=== PATIENT | male | born 1940 | race Caucasian/White ===

== ENCOUNTER 2024-04-27 06:53 | Day surgery (SDC) | payer OTHER ==
[2024-04-26 12:00] LABS: BASOPHILS # (AUTO) 0.1 X10'3 (0-0.2); BASOPHILS % (AUTO) 1.1 % (0-1); EOSINOPHILS # (AUTO) 0.2 X10'3 (0-0.9); EOSINOPHILS % (AUTO) 2.8 % (0-6); HEMATOCRIT 45.7 % (42.0-52.0); HEMOGLOBIN 15.2 g/dl (14.0-17.9); LYMPHOCYTES # (AUTO) 1.2 X10'3 (1.1-4.8); MEAN CORPUSCULAR HEMOGLOBIN 31.6 PG (27.0-31.0); MEAN CORPUSCULAR HGB CONC 33.4 g/dL (33.0-36.5); MEAN CORPUSCULAR VOLUME 94.5 FL (78-98); MEAN PLATELET VOLUME 8.3 FL (7.4-10.4); MONOCYTES # (AUTO) 0.5 X10'3 (0-0.9); MONOCYTES % (AUTO) 8.8 % (2-12); NEUTROPHILS # (AUTO) 4.1 X10'3 (1.8-7.7); NEUTROPHILS % (AUTO) 67.3 % (42-75); PLATELET COUNT 206 X10'3 (140-440); RED BLOOD COUNT 4.83 X10'6 (4.70-6.10); RED CELL DISTRIBUTION WIDTH 13.6 % (11.5-14.5); WHITE BLOOD COUNT 6.1 X10'3 (4.5-11.0)
[2024-04-26 12:14] LABS: APTT 29 SECONDS (22-32); INR 1.1 INR; PROTHROMBIN TIME 11.6 SECONDS (9.0-12.0)
[2024-04-26 12:30] LABS: ALBUMIN 3.4 G/DL (3.4-5.0); ANION GAP 6 (8-16); BLOOD UREA NITROGEN 13 MG/DL (7-18); BUN/CREATININE RATIO 15.1 (10.0-20.0); CALCIUM 8.8 MG/DL (8.5-10.1); CHLORIDE 107 MMOL/L (99-107); CREATININE 0.86 MG/DL (0.60-1.10); GLUCOSE 90 MG/DL (70-104); POTASSIUM 4.3 MMOL/L (3.5-5.1); SODIUM 142 MMOL/L (135-145); TOTAL CARBON DIOXIDE 29.3 MMOL/L (24-32); eGFR 85 ML/MIN
[~2024-04-27] VITALS: Ht 177.8 cm; Wt 88.4 kg
[2024-04-27] VITALS (15 sets, daily range): BP systolic 100–136; BP diastolic 47–94; PULSE 64–81; RESP 12–22; TEMP 98.5; O2SAT 92–99
[~2024-04-27 06:53] MED LIST: ASPI-611 PO; NAPR-56 PO; PANT40TA54 PO; UBID50TA3 PO
[2024-04-27] MEDS ORDERED: ceFAZolin 1,000 MG in NS 50ML IVPB IV ONE (07:15)
[2024-04-27] MEDS ORDERED: iohexol 350 MG/ML 50ML vial IV ONE (08:27)
[2024-04-27] MEDS ORDERED: verapamil 2.5 mg/ml inj IV ONE (08:27)
[2024-04-27] MEDS ORDERED: heparin 1,000unit/ml 10ml vial 10 ML ONE (08:27)
[2024-04-27] MEDS ORDERED: LIDOcaine 1% (10mg/ml) 2ml vial ONE (08:27)
[2024-04-27] MEDS ORDERED: fentaNYL/PF 50MCG/1 ML 2ML syringe ONE (08:27)
[2024-04-27] MEDS ORDERED: midazolam 1 mg/ML 2ml injection ONE (08:27)
[2024-04-27] MEDS ORDERED: iohexol 350MG/ML 100ml bottle IV ONE ×2 (08:28→10:13)
[2024-04-27] MEDS ORDERED: nitroGLYCERIN 500mcg/5mL D5W 5 ML IV ONE (08:29)
[2024-04-27] MEDS ORDERED: CYAN-34 PO (08:41)
[2024-04-27] MEDS ORDERED: ASPI-974 PO (08:41)
[2024-04-27] MEDS ORDERED: CHOL200052 PO (08:41)
[2024-04-27] MEDS ORDERED: LOPE2CAP PO (08:41)
[2024-04-27] MEDS ORDERED: FLO0.4C PO (08:41)
[2024-04-27] MEDS: diphenhydrAMINE 25mg capsule PO PRN (08:49)
[2024-04-27] MEDS: LORazepam 0.5 MG tablet PO PRN (08:49)
[2024-04-27] MEDS: normal saline 1,000 ML IV SCH (08:49)
[2024-04-27] MEDS ORDERED: LIDOcaine 1% 30ml preserv. free vial ONE (10:00)
[2024-04-27 11:25] LABS: ISTAT HGB ART 13.9 g/dl (14.0-17.9); ISTAT Hct ART 41 %PCV (42-52); ISTAT O2 SATURATION ARTERIAL 94 % (95-98); ISTAT SOURCE ART
== END 2024-04-27 18:00 | disposition home or self-care (01) ==
LOC: CATH LAB 06:53 → SSTAY O 18:00
PROVIDERS: ATTEND Internal Medicine Cardiovascular Disease
DX: I35.0 Nonrheumatic aortic (valve) stenosis (principal); I25.10 Atherosclerotic heart disease of native coronary artery without angina pectoris; I11.0 Hypertensive heart disease with heart failure; I50.32 Chronic diastolic (congestive) heart failure; I48.0 Paroxysmal atrial fibrillation; E78.5 Hyperlipidemia, unspecified; E66.3 Overweight; Z79.82 Long term (current) use of aspirin; Z79.899 Other long term (current) drug therapy; Z90.49 Acquired absence of other specified parts of digestive tract; Z95.818 Presence of other cardiac implants and grafts; Z98.890 Other specified postprocedural states; Z68.28 Body mass index [BMI] 28.0-28.9, adult; Z88.2 Allergy status to sulfonamides; Z80.9 Family history of malignant neoplasm, unspecified
CPT/HCPCS: 36415; 80048; 82803; 85014; 85025; 85610; 85730; 93005; 93460; 99152; 99153; A6258; J1644; J2250; J3010; J3490; J7030; Q0163; Q9967; 76937; A6402; A6449; C1725; C1751; C1760; C1769; C1894

== ENCOUNTER 2025-02-09 09:24 | Outpatient (CLI) | payer OTHER ==
[~2025-02-09 09:24] MED LIST changes: -ASPI-611 PO; +ASPI-974 PO; +CHOL200052 PO; +CYAN-34 PO; +IODIXANOL 320 MG/ML INFUS..BTL 100ML IV ONE; +LOPE2CAP PO; -NAPR-56 PO; -PANT40TA54 PO; +TAMS-55 PO; -UBID50TA3 PO
[2025-02-09 09:50] LABS: MEAN PLATELET VOLUME 8.5 FL (7.4-10.4); RED CELL DISTRIBUTION WIDTH 14.0 % (11.5-14.5)
[2025-02-09 10:02] LABS: APTT 32 SECONDS (22-32); INR 1.2 INR
[2025-02-09 10:10] LABS: CREATININE 1.01 MG/DL (0.60-1.10); PRO BRAIN NATRIURETIC PEPTIDE 870 PG/ML (0-450); TOTAL CARBON DIOXIDE 29.4 MMOL/L (24-32); eGFR 71 ML/MIN
--- NOTE | 2025-02-09 11:18 | RADIOLOGY REPORT ---
DI CHEST,TWO VIEWS CLINICAL HISTORY: SOB TAVR COMPARISON: None TECHNIQUE: Frontal and lateral view of the chest was obtained FINDINGS: Lines and Tubes: None Lungs: No focal consolidation. Pleura: No effusion. No pneumothorax. Cardiomediastinal contours: Unremarkable Bones: Median sternotomy. IMPRESSION: No acute cardiopulmonary disease.
--- NOTE | 2025-02-09 12:08 | VASCULAR REPORT ---
Carotid Duplex Clinical History: Hyperlipidemia Comparison: None Technique: Duplex Doppler evaluation of the extracranial carotid and vertebral arteries including color Doppler and spectral/pulsed waveform analysis was performed. Findings: RIGHT SIDE: The peak systolic velocities are 82 cm/s in the CCA, 62 cm/s in the ICA. The ICA/CCA ratio is 1.1. The external carotid artery is patent with peak systolic velocity of 67 cm/s proximally. The subclavian artery is patent with peak systolic velocity of 95 cm/s. There is appropriate antegrade flow in the right vertebral artery. LEFT SIDE: The peak systolic velocities are 81 cm/s in the CCA, 68 cm/s in the ICA. The ICA/CCA ratio is 0.9. The external carotid artery is patent with peak systolic velocity of 83 cm/s proximally. The subclavian artery is patent with peak systolic velocity of 74 cm/s. There is appropriate antegrade flow in the left vertebral artery. IMPRESSION: No hemodynamically significant stenosis noted in the right carotid system. No hemodynamically significant stenosis noted in the left carotid system. Reference: Radiology 2003; 229:340-346 Normal ICA PSV is <125 cm/sec and no plaque or intimal thickening is visible sonographically addition al criteria include ICA/CCA PSV ratio <2.0 and ICA EDV <40 cm/sec <50% ICA stenosis ICA PSV is <125 cm/sec and plaque or intimal thickening is visible sonographically additional criteria include ICA/CCA PSV ratio <2.0 and ICA EDV <40 cm/sec 50-69% ICA stenosis ICA PSV is 125-230 cm/sec and plaque is visible sonographically additional criter ia include ICA/CCA PSV ratio of 2.0-4.0 and ICA EDV of 40-100 cm/sec 70% ICA stenosis but less than near occlusion ICA PSV is >230 cm/sec and visible plaque and luminal narrowing are seen at delarosa-scale and color Doppler ultrasound (the higher the Doppler parameters lie above the threshold of 230 cm/sec, the greater the likelihood of severe disease) additional criteria include ICA/CCA PSV ratio >4 and ICA EDV >100 cm/sec
--- NOTE | 2025-02-10 13:52 | RADIOLOGY REPORT ---
Procedure: CT CTA TAVR Reason for study/Clinical History: Chest pain, evaluate for dissection. Comparison Study: None Exam Date: 02/09/2025 10:50 AM TECHNIQUE: Multiplanar reformatted images were generated from volumetric data acquired on a multidetector [facility]. Cardiac gating was utilized. Arterial phase images were obtained through the chest, abdomen and pelvis following intravenous administration of contrast material. 100 mL visipaque [address] dose reduction techniques were utilized. 3-D reconstructions were performed on an independent work station. Radiation Dose Information: CT Dose: CTDI volume is 65 mGy. Dose-length product is 2383 mGy*cm FINDINGS: Vascular: Aortic measurements: Aortic annulus: 35.2 x 28.7 mm Sinus of valsalva: right cusp 37.7 mm, left cusp 36.6 mm, non-coronary cusp 37.6 mm Right coronary distance: 17.4 Left coronary distance: 15.8 ST junction 29.5 mm Ascending aorta 32.1 mm Aortic arch 27 mm Descending aorta 26 mm Aortic hiatus 26 mm Upper abdominal aorta 23 mm Minimal abdominal aorta 14.3 mm Right common iliac 10.8 mm, tortuosity index 2.48 Left common iliac 10.6 mm, tortuosity index 1.21 There is normal caliber of aorta. No aortic dissection. Aortic arch anatomy is conventional. There is conventional coronary artery anatomy. Scattered calcified atherosclerotic plaque. No central pulmonary embolism. There is normal dimension of the main pulmonary artery. Heart is normal. There are no intracardiac filling defects. No pericardial effusion. Mediastinum: Subcentimeter mediastinal nodes.. Lungs: Atelectasis and scarring in the lung bases. Pleura: No effusion or pneumothorax. Chest wall: No acute abnormality. Abdomen and Pelvis: Liver: Normal in appearance. Gallbladder: Normal in appearance. Spleen: Normal in appearance. Pancreas: Normal in appearance. Adrenals: Normal in appearance. Kidneys: Normal in appearance. Bowel: Normal in appearance. Peritoneum: No free air or free fluid. Lymph nodes: No lymphadenopathy by CT size criteria. Pelvic structures: Prostatomegaly. 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 IMPRESSION: 1. TAVR planning with vascular measurements as described above. 2. Prostatomegaly. HS:Y
== END 2025-02-09 23:59 | disposition home or self-care (01) ==
LOC: RAD 09:24
PROVIDERS: ATTEND Internal Medicine Cardiovascular Disease
DX: E78.5 Hyperlipidemia, unspecified (principal); I35.0 Nonrheumatic aortic (valve) stenosis; I65.29 Occlusion and stenosis of unspecified carotid artery; R06.02 Shortness of breath; J98.11 Atelectasis
CPT/HCPCS: 36415; 71046; 71275; 74174; 75572; 80053; 83880; 85025; 85610; 85730; 93880; Q9967

== ENCOUNTER 2025-03-09 06:06 | Inpatient (IN) | payer OTHER, BC ==
[2025-03-06 10:37] LABS: MEAN PLATELET VOLUME 8.5 FL (7.4-10.4); PRE OP HEMATOCRIT 45.5 % (42.0-52.0); PRE OP HEMOGLOBIN 15.6 g/dL (14.0-17.9); PRE OP PLATELET COUNT 198 X10'3 (140-440); PRE OP WHITE BLOOD COUNT 7.3 10'3 (4.8-10.8); RED CELL DISTRIBUTION WIDTH 13.5 % (11.5-14.5)
--- NOTE | 2025-03-06 10:44 | ELECTROCARDIOGRAPH REPORT ---
[facility] Test Date: 2025-03-06 Test Time: 10:34:25 Pat Name: MALATHI KHAN Department: PRE/OP CARDIOLOGY Room: Gender: M Steel Finisher: RYNE : 1940 Requested By: RACHEL FAGAN Order Number: [id number] Reading MD: Dr. KATI Walters Measurements Intervals [place] Rate: 70 P: -87 VT: 132 QRS: 82 QRSD: 84 T: 57 QT: 426 QTc: 460 Interpretive Statements Sinus or ectopic atrial rhythm Borderline right axis deviation Electronically Signed On 03-06-2025 18:19:[address] KATI Walters Please click the below link to view image of tracing.
[2025-03-06 10:51] LABS: PRE OP INR 1.1 INR; PRE OP PARTIAL THROMB. TIME 32.0 SECONDS (22-32); PRE OP PROTIME 11.5 SECONDS (9.0-12.0)
[2025-03-06 10:55] LABS: CREATININE 0.83 MG/DL (0.60-1.10); PRE OP ALT 24 U/L (30-65); PRE OP ANION GAP 4 (8-16); PRE OP AST 20 U/L (10-37); PRE OP BILIRUB, TOTAL 0.6 MG/DL (0.0-1.0); PRE OP GLUCOSE 93 MG/DL (70-104); PRE OP POTASSIUM 4.2 MMOL/L (3.4-5.1); PRE OP SODIUM 140 MMOL/L (135-145); TOTAL CARBON DIOXIDE 32.2 MMOL/L (24-32); eGFR 89 ML/MIN
--- NOTE | 2025-03-06 11:26 | RADIOLOGY REPORT ---
DI CHEST,TWO VIEWS CLINICAL HISTORY: PREOP COMPARISON: DI CHEST,TWO VIEWS on DOS: 02/09/25 TECHNIQUE: Frontal and lateral view of the chest was obtained FINDINGS: Lines and Tubes: None Lungs: No focal consolidation. Pleura: No effusion. No pneumothorax. Cardiomediastinal contours: Unremarkable Bones: Median sternotomy. IMPRESSION: No acute cardiopulmonary disease.
[2025-03-06 11:53] LABS: LEUKOCYTE ESTERASE ,URINE NEGATIVE (Neg); NITRITES, URINE NEGATIVE (Neg); OCCULT BLOOD,URINE TRACE-INTACT (Neg)
[2025-03-06 11:56] LABS: UA COLLECTION TYPE NON-SPECIFIED
[2025-03-06 11:59] LABS: SQUAMOUS EPITHELIAL CELL,UR NONE SEEN /LPF (FEW)
[2025-03-06 12:00] LABS: MUCUS STRANDS NONE SEEN /LPF (Neg)
[2025-03-06 17:25] LABS: PRO BRAIN NATRIURETIC PEPTIDE 1184 PG/ML (0-450)
[~2025-03-09] VITALS: Ht 175.3 cm; Wt 88.0 kg
[2025-03-09] VITALS (29 sets, daily range): BP systolic 102–149; BP diastolic 52–114; PULSE 60–97; RESP 12–19; TEMP 97.3–98.5; O2SAT 90–100
[~2025-03-09 06:06] MED LIST changes: +APIX5TAB3 PO; -CYAN-34 PO; -IODIXANOL 320 MG/ML INFUS..BTL 100ML IV ONE; +SOTA80TA46 PO; +nitroPRUSSIDE (NIPRIDE) (200MCG/ML) 100ML Drip IV SCH; +ondansetron/PF 4mg/2ml inj IV PRN; +phenylephrine inj 50 MG in normal saline 250ml IV solN IV SCH
[2025-03-09] MEDS ORDERED: protamine sulfate 10mg/ml inj. ONE ×2 (06:26→08:45)
[2025-03-09] MEDS: DOCUMENT DATE & TIME OF BETA-BLOCKER PO ONE (06:58)
[2025-03-09] MEDS: ceFAZolin 2gm/dext,iso 50mL 50 ML IV ONE (06:59)
[2025-03-09] MEDS: ringers solution, lacted 1,000 ML IV SCH ×2 (07:02→10:15)
[2025-03-09] MEDS: VANCOMYCIN/H2O 1.5g/300mL PB 300 ML IV ONE (07:15)
[2025-03-09] MEDS ORDERED: LIDOcaine 1% 30ml preserv. free vial ONE (08:05)
[2025-03-09] MEDS ORDERED: heparin 1,000 UNITS/NS 500ml 1,500 ML ONE (08:05)
[2025-03-09] MEDS ORDERED: midazolam 1 mg/ML 2ml injection ONE (08:17)
[2025-03-09] MEDS ORDERED: fentaNYL/PF 50MCG/1 ML 2ML syringe ONE (08:17)
[2025-03-09] MEDS ORDERED: glycopyrrolate 0.2mg/ml inj ONE (08:45)
[2025-03-09] MEDS ORDERED: heparin 1,000unit/ml 10ml vial 10 ML ONE (08:57)
[2025-03-09] MEDS ORDERED: dexamethasone sod phosphate 4mg/ml inj. ONE (09:09)
[2025-03-09] MEDS ORDERED: propofol inj 20 ML IV ONE (09:09)
[2025-03-09] MEDS ORDERED: ondansetron/PF 4mg/2ml inj ONE (09:09)
[2025-03-09] MEDS ORDERED: magnesium sulf-water 4G/100mL 100 ML IV PRN (10:10)
[2025-03-09] MEDS ORDERED: potassium CL 10mEq/100ml bag 100 ML IV PRN (10:10)
[2025-03-09] MEDS ORDERED: ALPRAZolam 0.25mg tablet PO PRN (10:10)
[2025-03-09] MEDS ORDERED: potassium Cl 40MEQ/1/2NS 520ml 520 ML IV PRN (10:10)
[2025-03-09] MEDS: normal saline 1000ml 1,000 ML IV SCH (10:10)
[2025-03-09] MEDS ORDERED: docusate sod 100mg capsule PO PRN (10:10)
[2025-03-09] MEDS ORDERED: HYDROcodone/acetaminophen 5mg/325mg tablet PO PRN (10:10)
[2025-03-09] MEDS ORDERED: pantoprazole 40mg Tablet.DR PO PRN (10:10)
[2025-03-09] MEDS ORDERED: ondansetron/PF 4mg/2ml inj IV PRN ×2 (10:10→10:15)
[2025-03-09] MEDS ORDERED: hydrALAZINE 20mg/ml inj. IV PRN (10:10)
[2025-03-09] MEDS ORDERED: potassium Cl 20mEq/100mL bag 100 ML IV PRN (10:10)
[2025-03-09] MEDS ORDERED: potassium Cl 40MEQ/270ML bag 250 ML IV PRN (10:10)
[2025-03-09] MEDS ORDERED: magnesium sulf-water 2g/50mL 50 ML IV PRN (10:10)
[2025-03-09] MEDS ORDERED: labetalol 20mg/4ml (5mg/ml) syringe IV PRN ×2 (10:10→10:15)
[2025-03-09] MEDS ORDERED: potassium Cl 20 mEq SR tablet PO PRN (10:10)
[2025-03-09] MEDS ORDERED: morphine 4 MG/ML inj SYRINge IV PRN (10:15)
[2025-03-09] MEDS ORDERED: enalaprilat 1.25mg/ml 2ml vial IV PRN (10:15)
[2025-03-09] MEDS ORDERED: meperidine/PF 25mg/ml syringe IV PRN ×3 (10:15)
--- NOTE | 2025-03-09 10:17 | OPERATIVE REPORT ---
Operative Report Providers to CC CC: PEDRO LUIS ERICKSON MD ~ Date of Procedure: Mar 09, 2025 Pre-Operative Diagnosis: Severe Aortic Stenosis Post-Operative Diagnosis SAME as PRE-Op Procedure Performed 1. Ultrasound-guided access, bilateral femoral vessels. 2. Bilateral femoral angiography. 3. Ascending aortography. 4. Temporary transvenous pacer to the RV apex. 5. Balloon Aortic Valvuloplasty with a 24mm balloon 6. Placement of a 29+3 mm Sanford S3 Resilia valve. Surgeon: Holly Maurice MD Wood Preparation Supervisor MD Dr. Ethan Vigil MD Anesthesiologist: Deepak Morfin Type of Anesthesia: General Findings: Severe Aortic Stenosis Complications None Prosthetics\Implants used: Sanford 29+3mm S3 Resilia Estimated Blood Loss: Minimal Specimen Removed: None Description of Procedure: The patient was brought to the laboratory secretary in a fasting state. They underwent general anesthesia. Ultrasound was used to guide access to the bilateral femoral vessels, 7-Malaysian sheath, right femoral artery, 6-Malaysian sheath, left femoral artery and right femoral vein. Bilateral femoral angiograms were obtained. Heparin was given to maintain an ACT over 250 seconds. Two cash-cross Perclose devices were placed on the left. We upsized to an 8- Malaysian sheath. Two pigtail catheters placed in the ascending aorta. Ascending aortography done to determine the angle of deployment. Temporary transvenous pacer to the RV apex and confirmed capture. We upsized an 8-Malaysian sheath to a 16-Malaysian Sanford eSheath on the right. We crossed the aortic valve using a straight stiff exchange length Terumo wire supported by a 6-Malaysian AL1 catheter. LV AO pressures were recorded. A Palringo extra support wire was placed in the left ventricle. Next, a 24mm balloon was brought into position and under rapid ventricular pacing, it was inflated. Subsequently, A 29+1 mm Sanford S3 Resilia valve was brought to position and under rapid right ventricular pacing was deployed. There was still 1+ AI and no , so the valve balloon was re-prepped and deployed at +3mm. Post-procedure, there was no AI and no residual . Guidewires and balloons were removed at this time. The temporary pacer was removed. The 16-Malaysian Sanford eSheath was removed and the Perclose devices tied with adequate hemostasis. The arterial sheath on the right was removed and a single Perclose tied. The venous sheath on the right was removed and a single Angioseal used for hemostasis. Protamine was given to reverse the effects of heparin. The patient was stable post-procedure. Good pulses in the legs and no evidence of bleeding, transferred to the PACU in stable condition. HEMODYNAMICS: Pre: LV: 151/9 mmHg LVEDP: 17mmHg Ao: 116/63, MAP 80mmHg Post: LV: 127/13 mmHg LVEDP: 22 mmHg Ao: 127/65, MAP 90mmHg RESULTS: 1. Successful balloon aortic valvuloplasty with a 24 mm balloon. 2. Successful placement of a 29+3 mm Sanford S3 Resilia valve, left transfemoral approach, two perclose devices. Resume OAC in AM if no signs/symptoms of bl eeding 3. Hypertension: Resume if blood pressure remains stable 4. Afib: OAC as above 5. MR s/p MV Repair 2000 Patient will be watched in the recovery area until stable, then transferred to telemetry at that time. HOLLY MAURICE MD Mar 09, 2025 10:16
--- NOTE | 2025-03-09 10:32 | ELECTROCARDIOGRAPH REPORT ---
[facility] Test Date: 2025-03-09 Test Time: 10:30:33 Pat Name: MALATHI KHAN Department: [facility] Patient ID: [facility]-[id number] Room: [facility] IN [facility] B Gender: M End Finder Twisting Department: : 1940 Requested By: HOLLY EDMONDSON Order Number: [id number] Reading MD: Dr. KATI Walters Measurements Intervals [place] Rate: 60 P: 0 RI: 231 QRS: 95 QRSD: 93 T: 54 QT: 493 QTc: 493 Interpretive Statements Sinus rhythm Prolonged RI interval Right axis deviation Consider left ventricular hypertrophy Borderline prolonged QT interval Electronically Signed On 03-09-2025 11:30:[address] KATI Walters Please click the below link to view image of tracing.
--- NOTE | 2025-03-09 14:53 | CARDIOLOGY REPORT ---
APPROVED REPORT EXAM: Focused, limited intraprocedural transthoracic 2D, spectral and color flow Doppler echocardiogr am during TAVR deployment. Patient Location: [facility] Blood Pressure: 121 / 75 mmHg Heart Rate: 58 bpm Rhythm: SINUS Indications SEVERE AORTIC STENOSIS 29mm Sanford Alcira 3 Ultra RESILIA Bioprosthetic TAVR 24mm Worden balloon - BAV MV REPAIR (UNK DATE) HYPERTENSION PAROXYSMAL ATRIAL FIBRILLATION Resident Director:MD DONOVAN / Interventionalist: Lisa Maurice MD and Edel Atkinson MD. / Surgeon: Sumit Huitron MD. / Device rep: Lana PONCE ELS Previous echo: 01/18/25 BVC AD EF: 65-70%; ALICIA 0.98; PKV: 4.07; GRAD: 66 / 39; LVOT 2.6; VHD: mMR S/P MV REP; mTR; m/Edwin; nlAO ROOT LEFT VENTRICLE Normal LV size and function. Moderate concentric hypertrophy. LVEF is 70-75%. RIGHT VENTRICLE RV is normal size and function. ATRIA Left atrium appears at least moderately dilated. AORTIC VALVE Functionally bicuspid AV appears heavily calcified with significant stenosis demonstrated by reduced excursion and increased transvalvular and ascending aorta turbulance. LVOT appears to have significan t calcification as well. ALICIA of 0.9 cmsq with a peak/mean gradient of 72/41 mmHG and a peak velocity of 4.27 m/s. Mild insufficiency. BAV: 24mm Worden gold balloon. POST DEPLOYMENT (LOOP:46): 29 mm Wali ds Alcira 3 Ultra Resilia bioprosthetic TAVR appears well seated with normal function. Multiple trace paravalvular leak present at 7, 10, 11, 12, 1, 2, 3, and 4 o'clock in TTE SAX BASE. Secondary dilat ation performed. Trivial paravalvular leaks noted at 1, 2, 5, 7, 9, and 10 oclock PSAX TTE. ALICIA is me asured at 3.8 cmsq. Peak / mean gradients of 7/4 mmHG. Peak velocity is measured at 1.35 m/sec. MITRAL VALVE Moderate MV annular calcification s/p ring repair without significant stenosis. Mild eccentric regurg itation. Mean graedient of 4mmHG. POST DEPLOYMENT mean gradient increased to 8 mmHG. TRICUSPID VALVE TV appears structurally normal with mild regurgitation. PERICARDIUM There is no pericardial effusion.
[2025-03-09] MEDS: ceFAZolin 1GM/D5W- ADD-VANTAGE 50 ML IV SCH (16:12)
[2025-03-09] MEDS: sod chloride 0.9% 10ml flush syringe IV SCH (16:12)
[2025-03-09] MEDS ORDERED: VITA-268 PO (17:29)
[2025-03-09] MEDS: vancomycin/NS 1 GM ADD-VANTAGE 250 ML IV SCH (21:47)
[2025-03-10 02:00] VITALS: BP 107/54; PULSE 68; RESP 12; TEMP 98.1; O2SAT 99
[2025-03-10 06:41] LABS: MEAN PLATELET VOLUME 8.8 FL (7.4-10.4); RED CELL DISTRIBUTION WIDTH 13.4 % (11.5-14.5)
--- NOTE | 2025-03-10 06:49 | RADIOLOGY REPORT ---
CHEST RADIOGRAPH Indication: s/p TAVR Technique: Single frontal view of the chest was obtained COMPARISON: DI CHEST,TWO VIEWS on DOS: 03/06/25, DI CHEST,TWO VIEWS on DOS: 02/09/25 FINDINGS: Lines and Tubes: Median sternotomy Lungs: Clear Pleura: No effusion. No pneumothorax. Cardiomediastinal contours: Post TAVR. Bones: Unremarkable IMPRESSION: No acute disease.
[2025-03-10 07:00] VITALS: BP 135/74; PULSE 73; RESP 15; TEMP 97.8; O2SAT 97
[2025-03-10 07:04] LABS: CREATININE 0.99 MG/DL (0.60-1.10); PRO BRAIN NATRIURETIC PEPTIDE 1374 PG/ML (0-450); TOTAL CARBON DIOXIDE 27.4 MMOL/L (24-32); eCRCL 58 ML/MIN; eGFR 72 ML/MIN
[2025-03-10 08:00] VITALS: RESP 15; O2SAT 97
--- NOTE | 2025-03-10 08:01 | ELECTROCARDIOGRAPH REPORT ---
[facility] Test Date: 2025-03-10 Test Time: 07:58:48 Pat Name: MALATHI KHAN Department: [facility] Room: [place] [address] C Gender: M Heat Sealing Machine Operator: SARY : 1940 Requested By: HOLLY EDMONDSON Order Number: [id number] Reading MD: Dr. KATI Walters Measurements Intervals [place] Rate: 70 P: -82 IL: 107 QRS: 84 QRSD: 84 T: 62 QT: 428 QTc: 462 Interpretive Statements Sinus or ectopic atrial rhythm Short IL interval Borderline right axis deviation Electronically Signed On 03-11-2025 13:05:[address] KATI Walters Please click the below link to view image of tracing.
[2025-03-10 10:59] VITALS: BP 142/78; PULSE 69; RESP 14; TEMP 97.6; O2SAT 96
--- NOTE | 2025-03-10 14:25 | DISCHARGE SUMMARY ---
Discharge Summary Providers to CC ~ Discharge Summary Admission Diagnosis: Severe Aortic Stenosis Hospital Course DATE OF ADMISSION: 03/09/25 DATE OF DISCHARGE: 03/10/25 Discharge Diagnosis\Comment: Aortic stenosis status post TAVR Hypertension Atrial fibrillation Mitral regurgitation status post repair in 2000 Operations\Procedures: 1. Ultrasound-guided access, bilateral femoral vessels. 2. Bilateral femoral angiography. 3. Ascending aortography. 4. Temporary transvenous pacer to the RV apex. 5. Balloon Aortic Valvuloplasty with a 24mm balloon 6. Placement of a 29+3 mm Sanford S3 Resilia valve. Consultants: No consultants Complications: No complications Condition on DC: Stable Continued Medications: Apixaban (Eliquis) 5 Mg Tablet 5 MG PO BID Aspirin (Aspirin) 325 Mg Tablet 1 TAB PO HS Cholecalciferol (Vitamin D3) (Vitamin D3) 50 Mcg (2000 Unit) Tablet 1 TAB PO DAILY Loperamide Hcl (Loperamide) 2 Mg Capsule 2 CAP PO TID for loose stool Sotalol HCl (Sotalol) 80 Mg Tablet 0.5 TAB PO Q12H Tamsulosin Hcl* (Flomax*) 0.4 Mg Cap.sr.24h 1 CAP PO BID for 30 Days, #30 CAP Vitamin B Complex (B Complex) 1 Each Tablet 0.5 TAB PO DAILY for 30 Days, #30 TAB 0 Refills Discharge Summary: This is 89-year-old male with history of hypertension, hyperlipidemia, severe aortic stenosis, mitral regurgitation status post repair in 2000. Presented for planned TAVR. Underwent placement of a 29+ 3 mm Sanford S3 resilient valve via the left transfemoral approach. Was monitored overnight in the telemetry unit. Has remained hemodynamically stable. No chest pain or pressure. No shortness a breath. No dizziness, lightheadedness or syncope. Has been up and ambulatory without complaints. Postoperative testing included an EKG which demonstrates sinus rhythm. Echocardiogram was completed and reviewed by applications engineering manager prior to discharge. Chest x-ray without acute cardiopulmonary pathology. Physical exam prior to discharge: General: Awake, alert, oriented. No apparent distress Neck: Supple. Normal range of motion. No JVD Respiratory: Lungs are clear to auscultation bilaterally. No respiratory distress. Chest: Normal shape and size. No accessory muscle use. Cardiovascular: Regular rate and rhythm. S1-S2. No murmur, gallop, rub. Gastrointestinal: Abdomen is soft. Nontender to palpation. Bowel sounds present. Extremities: No lower extremity edema, cyanosis or clubbing. Bilateral femoral cath sites with dressings clean dry and intact. No ecchymosis or swelling. No hematoma. Dorsalis pedis pulses plus two. Neurologic: Alert and oriented x4. Nonfocal Psychiatric: Normal mood and affect. Skin: Normal color. Warm and dry. Case was discussed with Dr. Isha Maurice. In agreement with discharge home. Patient will follow up as scheduled. Activity restrictions reviewed. *Problems/Diagnosis: (1) Aortic stenosis (2) Mitral regurgitation (3) Hypertension (4) Atrial fibrillation Total Time Spent on D/C: > 30 Minutes Counseling Services Smoking & Tobacco Cessation: N/A Supervising MD Co-signing Provider: LISA Apple NP Mar 10, 2025 14:25
[2025-03-10 15:00] VITALS: BP 138/80; PULSE 77; RESP 19; TEMP 97.9; O2SAT 96
--- NOTE | 2025-03-10 15:39 | CARDIOLOGY REPORT ---
APPROVED REPORT EXAM: Limited 2D, Doppler, and color-flow Echocardiogram. Patient Location: 302 Blood Pressure: 135/74 mmHg Heart Rate: 66 bpm Rhythm: NSR Indications ONE DAY FOLLOW-UP TAVR 29 mm Sanford Alcira 3 Ultra RESILIA Bioprosthetic TAVR MV repair Medical Billing Clerk: BV. Romeo MD. Previous echo 03/09/25 [facility] EF 70-75; ALICIA 3.8; Peak v 1.35; Grad 02/10 2D Dimensions LVOT Diameter 2.91 (1.8-2.4cm) IVC 19.91 mm Aortic Valve AoV Peak Eugene. 178.1 cm/s AoV VTI 42.0 cm AO Peak GR. 12.7 mmHg AO Mean GR. 7 mmHg LVOT VTI 23.70 cm LVOT Peak Eugene. 112.9 cm/s ALICIA(VTI)/BSA 3.74 cm2/m2 ALICIA (VTI) 3.74 cm2 Mitral Valve MV Peak Gr. 14 mmHg MV Mean Gr. 6 mmHg MV SLub887.9 cm/sMV RPsqd978.0 cm/s MVA VTI2.97 cm2MV VTI52.8 cm Tricuspid Valve TR P. Velocity 325 cm/s RAP ESTIMATE 10 mmHg TR Peak Gr. 42 mmHg RVSP 52 mmHg LEFT VENTRICLE LV appears normal in size with mild concentric hypertrophy. Overall systolic function appears normal. Overall LVEF is 70%. RIGHT VENTRICLE RV appears mildly dilated with normal contractility. RVSP is estimated at 52 mmHG. AORTIC VALVE 29 mm Sanford Alcira 3 Ultra RESILIA Bioprosthetic TAVR appears well seated. ALICIA: 3.74 cmsq; Pkv: 1.7 8 m/sec; Gradients: 13/7 mmHG. Trace paravalvular leaks noted at 4, 8 and 11 oclock PSAX TTE. MITRAL VALVE Moderate annular calcification S/P ring repair. Mean gradient of 6 mmHG. Mild to moderate regurgitati on. TRICUSPID VALVE The tricuspid valve is normal in structure. Mild tricuspid regurgitation. PULMONIC VALVE The pulmonary valve is normal in structure. Trace pulmonic regurgitation. GREAT VESSELS The IVC is normal in size and collapses >50% with inspiration. PERICARDIUM There is no pericardial effusion. Other Information Study Quality: Adequate Conclusion Overall LVEF is 70%. LV appears normal in size with mild concentric hypertrophy. Overall systolic function appears normal. RV appears mildly dilated with normal contractility. RVSP is estimated at 52 mmHG. 29 mm Sanford Alcira 3 Ultra RESILIA Bioprosthetic TAVR appears well seated. ALICIA: 3.74 cmsq; Pkv: 1.7 8 m/sec; Gradients: 13/7 mmHG. Trace paravalvular leaks noted at 4, 8 and 11 oclock PSAX TTE. Mild tricuspid regurgitation. Trace pulmonic regurgitation. There is no pericardial effusion. Moderate annular calcification S/P ring repair. Mean gradient of 6 mmHG. Mild to moderate regurgitati on.
== END 2025-03-10 15:44 | disposition home or self-care (01) | DRG 267 ==
LOC: PAS IN 06:06 → PCU 3S 11:56
PROVIDERS: ADMIT Internal Medicine Cardiovascular Disease; ATTEND Internal Medicine Cardiovascular Disease
PROC: B41D1ZZ Fluoroscopy of Aorta and Bilateral Lower Extremity Arteries using Low Osmolar Contrast (ICD-10-PCS; 2025-03-09)
PROC: 02RF38Z Replacement of Aortic Valve with Zooplastic Tissue, Percutaneous Approach (ICD-10-PCS; principal; 2025-03-09 08:46)
DX: I35.0 Nonrheumatic aortic (valve) stenosis (principal); Z00.6 Encounter for examination for normal comparison and control in clinical research program; I10 Essential (primary) hypertension; I08.0 Rheumatic disorders of both mitral and aortic valves; E78.5 Hyperlipidemia, unspecified; I48.91 Unspecified atrial fibrillation; Z79.01 Long term (current) use of anticoagulants; Z88.2 Allergy status to sulfonamides
CPT/HCPCS: 33361; 36415; 71045; 71046; 76937; 80053; 81001; 82948; 83735; 83880; 85025; 85347; 85610; 85730; 86885; 86900; 86901; 86920; 87081; 93005; 93308; A4615; A4618; A6258; A6449; C1725; C1756; C1760; C1769; C1894; G0378; J0690; J1100; J1644; J2003; J2250; J2270; J2371; J2405; J2704; J2720; J3010; J3373; J3375; J3490; J7030; J7040; J7050; J7120; Q9967